=== PATIENT | female | born 1935 | race Caucasian/White ===

== ENCOUNTER 2019-11-29 13:41 | Emergency (ER) | payer MEDICARE ==
[2019-11-29 14:31] VITALS: BP 134/59
--- NOTE | 2019-11-29 14:55 | UC ---
Hip/Pelvis Pain - HPI Summary HPI Summary: 84 yo female with left hip pain (greater troch/iliac rocky) since last PM. No trauma yesterday she had some band like abd pain that lasted a few hours states it resolved with peppermint Hx of diverticulitis no n/v/d no UTI symptoms no rash patient states she used to take aleve for arthritis but developed rectal bleeding (a few months ago) she stopped the aleve and never relayed this info to her MD took dose of antibiotic she had in her medicine cabinet unsure of what type - History Of Current Complaint Chief Complaint: UCGeneralIllness Stated Complaint: LT HIP PAIN Time Seen by Provider: 11/29/19 14:31 Hx Obtained From: Patient, Family/Chemical Dependency Professional - here with daughter Onset/Duration: Gradual Onset, Lasting Hours Timing: Constant Severity Initially: Moderate Severity Currently: Mild Pain Intensity: 3 Pain Scale Used: 0-10 Numeric Location: Discrete At: Character Of Pain: Aching Aggravating Factor(s): Other - touch Alleviating Factor(s): Nothing Associated Signs And Symptoms: Negative: Swelling, Redness, Bruising, Fever, Weakness, Dizziness, Syncope, Abdominal Pain, Knee Pain Female Torso: 1 - diffuse tenderness - Allergies/Home Medications Allergies/Adverse Reactions: Allergies Allergy/AdvReac Type Severity Reaction Status Date / Time No Known Allergies Allergy Verified 11/29/19 14:31 Home Medications: Home Medications Cholecalciferol TAB* [Vitamin D TAB*] 100 unit PO DAILY 11/29/19 [History Confirmed 11/29/19] Cyanocobalamin TAB* [Vitamin B12 TAB*] 500 mcg PO DAILY 11/29/19 [History Confirmed 11/29/19] Krill/Om3/Dha/Epa/Om6/Lip/Astx [Krill Oil 1,000 mg Softgel] 1 cap PO DAILY 11/29 [History Confirmed 11/29/19] PMH/Surg Hx/FS Hx/Imm Hx Previously Healthy: Yes Endocrine History: Dyslipidemia Cardiovascular History: Hypertension - Surgical History Surgical History: Yes Surgery Procedure, Year, and Place: RIGHT LEG SURGERY X 2 - GROWTH TAKEN OFF THE TIBIAL- MENISCUS REPAIR. HYSTERECTOMY-1970'S - Family History Known Family History: Positive: Hypertension - Social History Alcohol Use: None Substance Use Type: None Smoking Status (MU): Never Smoked Tobacco Review of Systems All Other Systems Reviewed And Are Negative: Yes Constitutional: Positive: Negative Skin: Positive: Negative Eyes: Positive: Negative ENT: Positive: Negative Respiratory: Positive: Negative Cardiovascular: Positive: Negative Gastrointestinal: Positive: Negative Genitourinary: Positive: Negative Motor: Positive: Negative Neurovascular: Positive: Negative Musculoskeletal: Positive: Negative Neurological: Positive: Negative Psychological: Positive: Negative Physical Exam Triage Information Reviewed: Yes Appearance: Well-Appearing, No Pain Distress, Well-Nourished Vital Signs: Initial Vital Signs Temp 99.5 F 11/29/19 14:22 Pulse 94 11/29/19 14:22 Resp 18 11/29/19 14:22 BP 134/59 11/29/19 14:22 Pulse Ox 99 11/29/19 14:22 Vital Signs Reviewed: Yes Eyes: Positive: Conjunctiva Clear ENT: Positive: Hearing grossly normal. Negative: Nasal congestion, Nasal drainage, Trismus, Muffled voice, Hoarse voice Neck: Positive: Supple, Nontender, No Lymphadenopathy Respiratory: Positive: Lungs clear, Normal breath sounds, No respiratory distress, No accessory muscle use Cardiovascular: Positive: RRR, No Murmur Abdomen Description: Positive: Nontender, No Organomegaly, Soft. Negative: CVA Tenderness (R), CVA Tenderness (L) Bowel Sounds: Positive: Present Musculoskeletal: Positive: Other: - left hip- no pain with int or ext rotation Neurological: Positive: Alert Psychological Exam: Normal Skin Exam: Normal Diagnostics - Laboratory Lab Results: UA ++ leuks - Radiology No standard instances Radiology Interpretation Completed By: Radiologist Summary of Radiographic Findings: #. Normally located LEFT hip. #. No radiographic evidence for LEFT proximal femur or pelvic fracture or pelvic joint diastases. #. Preserved hip joint spaces. #. Mild enthesopathy at the bilateral greater trochanters suggest hip abductor tendinopathy. #. 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 #. Unremarkable soft tissue contours accounting for body habitus. Hip Injury Course/Dx - Differential Dx/Diagnosis Provider Diagnosis: Left hip pain Discharge ED - Sign-Out/Discharge Documenting (check all that apply): Patient Departure All imaging exams completed and their final reports reviewed: Yes - Discharge Plan Condition: Stable Disposition: HOME Prescriptions: Cephalexin CAP* [Keflex CAP*] 500 mg PO BID #10 cap Patient Education Materials: Hip Bursitis (ED) Referrals: Jaleel Stein MD [Primary Care Provider] - 1 Week Bassem Adan MD [Medical Doctor] - 1 Week Additional Instructions: I am unsure of the cause of your hip pain It may be bursitis I suggest you see an orthopedist in follow up. Tylenol for pain You may take your gabapentin RECHECK IF YOU DEVELOP A RASH IN THE AREA OF THE PAIN RECHECK if you abdominal pain recurs and lasts >4 hours You may have a urinary tract infection a urine culture is pending Please follow with your MD in a timely fashion Discuss your episode of rectal bleeding - Billing Disposition and Condition Condition: STABLE Disposition: Home
--- NOTE | 2019-12-01 07:14 | UC ---
- Progress Note Progress Note: final urine - no growth on cephalexin recommend complete course - no change [email or web address] Course/Dx - Diagnoses Provider Diagnoses: Left hip pain Discharge ED - Sign-Out/Discharge Documenting (check all that apply): Post-Discharge Follow Up All imaging exams completed and their final reports reviewed: Yes - Discharge Plan Condition: Stable Disposition: HOME Prescriptions: Cephalexin CAP* [Keflex CAP*] 500 mg PO BID #10 cap Patient Education Materials: Hip Bursitis (ED) Referrals: Jaleel Stein MD [Primary Care Provider] - 1 Week Bassem Adan MD [Medical Doctor] - 1 Week Additional Instructions: I am unsure of the cause of your hip pain It may be bursitis I suggest you see an orthopedist in follow up. Tylenol for pain You may take your gabapentin RECHECK IF YOU DEVELOP A RASH IN THE AREA OF THE PAIN RECHECK if you abdominal pain recurs and lasts >4 hours You may have a urinary tract infection a urine culture is pending Please follow with your MD in a timely fashion Discuss your episode of rectal bleeding - Billing Disposition and Condition Condition: STABLE Disposition: Home
== END 2019-11-29 15:58 | disposition home or self-care (01) ==
LOC: UCCORT 13:41
DX: M25.552 Pain in left hip (principal); I10 Essential (primary) hypertension; M47.897 Other spondylosis, lumbosacral region; M47.817 Spondylosis without myelopathy or radiculopathy, lumbosacral region; M76.892 Other specified enthesopathies of left lower limb, excluding foot; M76.891 Other specified enthesopathies of right lower limb, excluding foot
CPT/HCPCS: 81003; 87086; 99212; G0463